=== PATIENT | male | born 1965 | race Caucasian/White ===

== ENCOUNTER 2016-10-03 17:00 | Inpatient (IN) | payer OTHER ==
--- NOTE | ~2016-10-03 | PN ---
Unit #: [id number] #: [id number] Patient: NAHOMY CORRAL [id number] [facility] [address] [place] [address] [id number] MR#: [id number] NAME: NAHOMY CORRAL ROOM: P254 Age: 51 Sex: M Admission Date: 10/03/2016 : 1965 Attending Physician: Danny Mullins M.D. Admitting Physician: Danny Mullins M.D. Primary Care Physician: Primary Care Physician Lizzette VELASCO PROGRESS NOTES DATE 10/05/2016 DISCUSSION The patient continues to complain of suicidal ideation during today's interview. He states that he had been compliant with the medications prior to coming to the hospital. He is a bit more active within the therapeutic milieu. We continue current treatment and further adjustments of the patient's psychotropic medication regimen mainly to be considered though the patient is already on an aggressive dose of olanzapine. Dictated by... Danny Mullins M.D. CB/alla TD: 10/05/2016 12:58 JOB #: [id number] ROD PROGRESS NOTES Page 1 of 1 X Danny Mullins MD PROGRESS NOTE
--- NOTE | ~2016-10-03 | PA ---
Unit #: [id number] #: [id number] Patient: NAHOMY CORRAL [id number] [place] [address] [id number] MR#: [id number] NAME: NAHOMY CORRAL ROOM: P254 Age: 51 Sex: M Admission Date: 10/03/2016 : 1965 Date of Assessment: 10/04/2016 Attending Physician: Danny Mullins M.D. Admitting Physician: Danny Mullins M.D. Primary Care Physician: Primary Care Physician No PSYCHIATRIC ASSESSMENT IDENTIFYING INFORMATION The patient is a 51-year-old male admitted with suicidal ideation. INFORMANT(S) Chart, patient could not aroused for interview. CHIEF COMPLAINT None given. HISTORY OF PRESENT ILLNESS The patient is a 51-year-old single white male who carries a diagnosis of chronic paranoid schizophrenia. He was last admitted to this facility in January of 2016. He returns reporting positive suicidal ideation and also reporting increased auditory and visual hallucinations. The patient has been noncompliant with prescribed medications per his report. The patient reports that the major stressors in his life right now is the presence of his brother in his home. The brother is refusing to leave. For more complete history of present illness please refer to previous dictated notes. PAST PSYCHIATRIC HISTORY Reviewed no changes. PAST MEDICAL HISTORY Reviewed no changes. MEDICATIONS Neurontin, Zyprexa. ALLERGIES None reported FAMILY HISTORY Reviewed no changes. SOCIAL HISTORY Reviewed no changes. MENTAL STATUS EXAMINATION At this time reveals the patient to be a thin disheveled white male who is soundly sleeping. Multiple attempts to arouse the patient are unsuccessful. The patient assets to be assessed. Liabilities lack of Unit #: [id number] #: [id number] Patient: NAHOMY CORRAL resources. DIAGNOSTIC IMPRESSION Chronic paranoid schizophrenia. TREATMENT PLAN The patient's medications will be reinitiated included gabapentin 600 mg four times daily and Zyprexa 15 mg twice daily. The patient will participate in appropriate martin and milieu activities with an estimate length of stay in the hospital of seven days. Suicide precautions are of course in place. Dictated by... Danny Mullins M.D. TIKA/kassie TD: 10/05/2016 01:37 JOB #: [id number] PSYCHIATRIC ASSESSMENT Page 1 of 1 X Danny Mullins MD PSYCHIATRIC ASSESSMENT
--- NOTE | ~2016-10-03 | DS ---
Unit #: [id number] #: [id number] Patient: NAHOMY CORRAL [id number] [facility] [address] [place] [address] [id number] MR#: [id number] NAME: NAHOMY CORRAL ROOM: 62 Age: 51 Sex: M Admission Date: 10/03/2016 : 1965 Discharge Date: 10/07/2016 Attending Physician: Danny Mullins M.D. Primary Care Physician: Primary Care Physician No DISCHARGE SUMMARY REASON FOR ADMISSION The patient is a 51-year-old white male, admitted with suicidal ideation. HOSPITAL COURSE The patient was admitted to the [facility] unit and placed on suicide precautions. He was restarted on previously prescribed gabapentin and Zyprexa, and tolerated reinitiation of the medications without complaint. He remained seclusive to room, but did report significant reduction in suicidal thinking and auditory hallucinations with reinitiation of medications. By 10/07/2016, the patient requested discharge and it was ordered. FINAL DIAGNOSES Chronic paranoid schizophrenia. DISPOSITION ON DISCHARGE The patient is discharged on the following medications: Neurontin 600 mg q.i.d. for anxiety and Zyprexa 15 mg b.i.d. for psychosis. DISCHARGE INSTRUCTIONS No dietary or physical restrictions were placed upon the patient at the time of discharge. FOLLOWUP Followup will take place through the auspices of community mental health resources. PROGNOSIS The patient's prognosis is considered fair. Dictated by... Danny Mullins M.D. CB/sharan TD: 10/07/2016 21:38 JOB #: [id number] Unit #: [id number] #: [id number] Patient: NAHOMY CORRAL DISCHARGE SUMMARY Page 1 of 1 X Danny Mullins MD X DISCHARGE SUMMARY
--- NOTE | ~2016-10-03 | PA ---
Unit #: [id number] #: [id number] Patient: JOVAN CORRAL [id number] [place] [address] [id number] MR#: [id number] NAME: JOVAN CORRAL ROOM: [facility] Age: 51 Sex: M Admission Date: 10/03/2016 : 1965 Date of Assessment: 10/04/2016 Attending Physician: Danny Mullins M.D. Admitting Physician: Danny Mullins M.D. Primary Care Physician: Primary Care Physician No PSYCHIATRIC ASSESSMENT ADDENDUM Dictating an addendum to the psychiatric evaluation on Jovan Corral, patient number [id number]. The addendum should read as follows: The patient's diagnostic impression should also include hepatitis C. Danny Mullins M.D. dictating an addendum to the previously dictated psychiatric evaluation on Jovan Corral. Dictated by... Danny Mullins M.D. CB/kassie TD: 10/05/2016 01:55 JOB #: [id number] PSYCHIATRIC ASSESSMENT Page 1 of 1 X Danny Mullins MD X PSYCHIATRIC ASSESSMENT
--- NOTE | ~2016-10-03 | HP ---
Unit #: [id number] #: [id number] Patient: JOVAN CORRAL [id number] [place] [address] [id number] MR#: [id number] NAME: JOVAN CORRAL ROOM: P254 Age: 51 Sex: M Admission Date: 10/03/2016 : 1965 Attending Physician: Danny Mullins M.D. Admitting Physician: Danny Mullins M.D. Primary Care Physician: Primary Care Physician No HISTORY AND PHYSICAL HISTORY OF PRESENT ILLNESS Jovan is a 51-year-old male admitted on 10/03/[address] [place] [address] for suicidal ideation and paranoid schizophrenia. PAST MEDICAL HISTORY Chronic pain in his ankle. PAST SURGICAL HISTORY Left ankle surgical repair with pin placement after a fracture. SOCIAL HISTORY He smokes one pack of cigarettes daily. Occasional beer and alcohol use and occasional marijuana use. He is currently single and living with his brother. FAMILY HISTORY Noncontributory. REVIEW OF SYSTEMS CONSTITUTIONAL: No fever or chills. HEENT: Denies any sore throat, ear pain or runny nose. CARDIOVASCULAR: Denies chest pain, irregular heart rhythm or palpitations. CHEST: Denies shortness of breath or cough. No hemoptysis. GASTROINTESTINAL: Denies nausea, vomiting, diarrhea or chronic constipation. ENDOCRINE: Denies history of increased thirst or urination. No recent significant weight loss or gain. GENITOURINARY: Denies dysuria, frequency, or hematuria. SKIN: Denies any rashes. HEMATOLOGIC: Denies history of increased bleeding or bruising. MUSCULOSKELETAL: Denies any hot, swollen joints. No generalized muscle pain. NEUROLOGIC: Denies problems with vision or speech. No frequent, severe headaches. No numbness, tingling or weakness in any extremities. Denies loss of bladder or bowel control. CURRENT MEDICATIONS Gabapentin and Zyprexa. Unit #: [id number] #: [id number] Patient: JOVAN CORRAL ALLERGIES Penicillin PHYSICAL EXAMINATION GENERAL: Alert, oriented, in no acute distress. VITAL SIGNS: Blood pressure 110/81, heart rate 67, respirations 17, temperature 98.8. HEIGHT: 5 foot 9 inches. WEIGHT: 194 pounds. SKIN: Warm and dry without rash or lesion. HEENT: Normocephalic. TMs not viewed. Oral and nasal passages clear. Conjunctivae clear. PERRLA. EOMs intact. NECK: Supple without lymphadenopathy or thyromegaly. HEART: Regular rate and rhythm without murmur. LUNGS: Clear. ABDOMEN: Soft, nontender, without masses or hepatosplenomegaly. : Not done. EXTREMITIES: No evidence of cyanosis, clubbing or edema. Moves all without focal deficit. NEUROLOGICAL: Grossly within normal limits. Cranial Nerves: II: Visual carey are intact. III, IV AND : Extraocular movements are intact. Pupils are equal, round and reactive to light. V: Facial sensation is grossly normal. VII: Facial movements and expression are normal. VIII: Auditory acuity grossly intact. IX, X: Uvula is midline. Phonation is normal. XI: Patient shrugs shoulders and turns head normally. XII: Tongue protrudes in the midline. Sensory and Motor Function: Sensory and motor sensation is grossly normal. Motor: moves all extremities well. Coordination: Gait is normal. Deep Tendon Reflexes: Intact. IMPRESSION Chronic pain. RECOMMENDATIONS Psychiatric, per psychiatrist. MEDICAL: I see no contraindications to participating in facility's activities. MEDICAL PROGNOSIS Good. MEDICAL CONDITION Stable. Dictated by... Bhupinder Looney/kassie TD: 10/05/2016 03:20 JOB #: [id number] Unit #: [id number] #: [id number] Patient: JOVAN CORRAL HISTORY AND PHYSICAL Page 1 of 1 X CESAR VASQUEZ APRN X HISTORY AND PHYSICAL
--- NOTE | ~2016-10-03 | PN ---
Unit #: [id number] #: [id number] Patient: NAHOMY CORRAL [id number] [facility] [address] [place] [address] [id number] MR#: [id number] NAME: NAHOMY CORRAL ROOM: 62 Age: 51 Sex: M Admission Date: 10/03/2016 : 1965 Attending Physician: Danny Mullins M.D. Admitting Physician: Danny Mullins M.D. Primary Care Physician: Primary Care Physician Lizzette VELASCO PROGRESS NOTES DATE 10/06/2016 DISCUSSION The patient is abed today seclusive to room but is reporting some improvement in mood and psychotic symptoms. He states that he may be ready for discharge "as soon as possible" and we will likely to possible a.m. discharge. Dictated by... Danny Mullins M.D. CB/jemima TD: 10/06/2016 15:35 JOB #: [id number] [facility] PROGRESS NOTES Page 1 of 1 X Danny Mullins MD PROGRESS NOTE
[~2016-10-03 17:00] MED LIST: ANTIBIOTIC PO; ASPIRIN81 M2 PO; BACITRACIN OINTMENT TOP; BACTRIM DS PO; BACTRIM DS TABL1 TA1 PO; CARAFATE1 G PO; CARVEDILOL3.125 MG PO; DARVOCET-N 1001 TAB PO; DEPAKOTE PO; DOXYCYCLINE HY100 M1 PO; EFFIENT10 MG PO; FAMOTIDINE PO; HYDROCODONE-APA1 T30 PO; IBUPROFEN800 MG PO; KEFLEX500 MG PO; LIPITOR40 MG PO; LISINOPRIL5 MG PO; LITHIUM PO; LORTAB 10-5001 EACH PO; LORTAB 101 TAB 10/5; LORTAB 7.51 TAB PO; METHADONE PO; NEURONTIN PO; NEURONTIN600 MG PO; NICOTINE1 EAC1 TD; NITROGLYCERIN0.4 MG SL; NORCO 5/325 TAB1 TAB PO; PAXIL PO; PHENERGAN PO; PRILOSEC PO; PRILOSEC20 M1 PO; SEROQUEL PO; SKELAXIN; SKELAXIN PO; TYLOX 5/500 CAP1 CAP PO; VICODIN PO; WESTCORT15 GM TOP; ZANTAC PO; ZOFRAN ODT PO; ZOFRAN ODT4 MG/UDTAB PO; ZYPREXA PO
== END 2016-10-07 14:45 | disposition home or self-care (01) | DRG 885 ==
LOC: P2L 19:27
DX: F20.0 Paranoid schizophrenia (principal); R45.851 Suicidal ideations; B19.20 Unspecified viral hepatitis C without hepatic coma; F17.210 Nicotine dependence, cigarettes, uncomplicated; F12.90 Cannabis use, unspecified, uncomplicated

== ENCOUNTER 2017-01-02 11:35 | Emergency (ER) | payer OTHER ==
--- NOTE | ~2017-01-02 | EKG ---
PATIENT: NAHOMY CORRAL UNIT #: [id number] Ventricular Rate: 94 BPM Atrial Rate: 94 BPM P-R Interval: 158 ms QRS Duration: 78 ms Q-T Interval: 340 ms QTC Calculation(Bezet): 425 ms P [place]: 55 degrees Calculated R [place]: -3 degrees Calculated T [place]: 38 degrees Diagnosis Line: Normal sinus rhythm Diagnosis Line: Normal ECG Diagnosis Line: Diagnosis Line: Confirmed by TONY BRAND MD ([id number]) on Diagnosis Line: 01/06/2017 8:22:00 AM INTERPRETING MD: SUNDAY FRAGA
[2017-01-02 12:05] LABS: URINE SOURCE CLEAN CATCH
[2017-01-02 12:08] LABS: URINE APPEARANCE CLEAR; URINE BILIRUBIN NEG (NEG); URINE BLOOD NEG (NEG); URINE COLOR YELLOW; URINE GLUCOSE NEG (NORM); URINE KETONE NEG (NEG); URINE LEUKOCYTE ESTERASE NEG (NEG); URINE NITRATE NEG (NEG); URINE PROTEIN NEG (NEG); URINE SPECIFIC GRAVITY 1.015 (1.003-1.035)
[2017-01-02 12:15] LABS: MICRO INDICATED? NO
[2017-01-02 12:18] LABS: AMPHETAMINE POS (NEG); BARBITURATES NEG (NEG); BENZODIAZEPINES POS (NEG); COCAINE NEG (NEG); MARIJUANA NEG (NEG); OPIATES NEG (NEG); TRICYCLIC ANTIDEPRESSANTS NEG (NEG); U METHADONE NEG (NEG)
[2017-01-02 12:33] LABS: POC - CKMB <1.0 ng/mL (0.0-7.9); POC - TROPONIN <0.05 ng/mL (<=0.05)
[2017-01-02 12:34] LABS: BASOPHIL# 0.1 X10e3 (0-0.3); BASOPHIL% 1.2 % (0-2.5); EOSINOPHIL# 0.3 X10e3 (0-0.7); EOSINOPHIL% 3.1 % (0.0-7.0); HEMATOCRIT 44.2 % (38.0-50.0); HEMOGLOBIN 14.5 gm/dL (13.0-16.0); LYMPHOCYTE# 2.6 X10e3 (1.0-3.5); LYMPHOCYTE% 26.8 % (17.0-45.0); MEAN CELL VOLUME 93.1 FL (83-96); MEAN CORPUSCULAR HEMOGLOBIN 30.6 PG (28-34); MEAN CORPUSCULAR HGB CONC 32.9 g/dL (30-36); MEAN PLATELET VOLUME 8.6 FL (6.5-11.5); MONOCYTE# 0.5 X10e3 (0-1.0); MONOCYTE% 4.8 % (3.0-12.0); NEUTROPHIL# 6.3 X10e3 (1.5-7.1); NEUTROPHIL% 64.1 % (40-75); PLATELET COUNT 348 X10e3 (140-420); RED BLOOD COUNT 4.75 X10e (3.90-5.60); RED CELL DISTRIBUTION WIDTH 15.3 % (11.0-15.5); WHITE BLOOD COUNT 9.8 X10e3 (4.0-10.5)
[2017-01-02 12:36] LABS: DIFF IND NO
[2017-01-02 12:43] LABS: ALBUMIN SERUM 3.7 g/dL (3.5-5.0); ALKALINE PHOSPHATASE 65 U/L (32-92); ALT (SGPT) 29 U/L (10-40); AMYLASE 27 U/L (0-46); AST (SGOT) 30 U/L (10-42); BILIRUBIN, DIRECT 0.1 mg/dL (0.0-0.2); BILIRUBIN,INDIRECT 0.2 mg/dL (0.0-0.9); BILIRUBIN,TOTAL 0.3 mg/dL (0.2-2.0); BLOOD UREA NITROGEN 11 mg/dL (9-23); CALCIUM SERUM 8.5 mg/dL (8.4-10.2); CARBON DIOXIDE 26 mmol/L (22-31); CHLORIDE 105 mmol/L (100-111); GLOM FILT RATE Estimated 85.6 mL/min (>60); GLUCOSE FASTING 155 mg/dL (70-110); LIPASE 34 U/L (22-51); POTASSIUM 3.1 mmol/L (3.5-5.1); PROTEIN TOTAL SERUM 6.9 g/dL (6.0-8.3); SODIUM 138 mmol/L (135-145)
[2017-01-02 12:57] LABS: ALCOHOL BLOOD <5 mg/dL ([, 0])
== END 2017-01-02 13:56 | disposition home or self-care (01) ==
LOC: SED 11:35
PROVIDERS: Emergency Medicine
DX: R10.13 Epigastric pain (principal); R51 Headache; R11.0 Nausea; K21.9 Gastro-esophageal reflux disease without esophagitis; F17.210 Nicotine dependence, cigarettes, uncomplicated; Z90.89 Acquired absence of other organs; Z79.899 Other long term (current) drug therapy; Z88.0 Allergy status to penicillin
CPT/HCPCS: 36415; 80048; 80076; 80307; 81003; 82150; 82553; 83690; 83874; 84484; 85025; 93005; 96361; 96374; 96375; 99284; C9113; G0480; J2270; J2405; J2550

== ENCOUNTER 2017-01-03 13:19 | Emergency (ER) | payer OTHER ==
[~2017-01-03] VITALS: Ht 175.3 cm; Wt 85.7 kg
--- NOTE | ~2017-01-03 | CT71 ---
[facility] A Service [facility] RADIOLOGY TEXT RESULTS PATIENT: NAHOMY CORRAL LOCATION: SED : 61 UNIT #: [id number] AGE: [address]: Alfonso Marino MD SEX: M ORDER DR: [id number] [address] [address] [id number] MR#: [id number] Acc #: [id number] NAME: NAHOMY CRORAL : 1965 SEX: M STUDY DATE/TIME: 01/03/2017 14:35 UNIT: SED ROOM: STUDY DESCRIPTION: CT Head Wo Contrast Attending Physician: Alfonso Marino M.D. Ordering Physician: Alfonso Marino M.D. Primary Care Physician: Primary Care Physician No MEDICAL IMAGING REPORT This report is preliminary unless electronic signature is present. EXAM CT scan of the brain without contrast INDICATION Headache since this morning COMPARISON 10/21/[address] exam was performed with one or more of the following radiation dose reduction techniques: automatic exposure control, adjustment of mA and/or kV according to patient size, and iterative reconstruction. FINDINGS Unenhanced images were obtained through the brain. There is some bifrontal inferior encephalomalacia which is stable. The ventricles and subarachnoid space are otherwise normal. There is no hemorrhage. IMPRESSION There is some encephalomalacia in the lower frontal lobes bilaterally suggesting perhaps previous trauma. It is unchanged from 2008. Otherwise the study is normal. Dictated by... Manolo Raphael M.D. THIS IS AN ELECTRONICALLY VERIFIED REPORT Manolo Raphael M.D. at 01/04/2017 7:06 AM BAILEY/greg TD: 01/03/2017 16:24 [facility] A Service [facility] RADIOLOGY TEXT RESULTS PATIENT: NAHOMY CORRAL LOCATION: SED : 61 UNIT #: [id number] AGE: [address]: Alfonso Marino MD SEX: M ORDER DR: TOM #: [id number] MEDICAL IMAGING REPORT Page 1 of 1
== END 2017-01-03 15:07 | disposition home or self-care (01) ==
LOC: SED 13:19
DX: R51 Headache (principal); G89.29 Other chronic pain; F15.10 Other stimulant abuse, uncomplicated; F20.9 Schizophrenia, unspecified; F17.200 Nicotine dependence, unspecified, uncomplicated; Z86.19 Personal history of other infectious and parasitic diseases; Z88.0 Allergy status to penicillin
CPT/HCPCS: 70450; 96372; 99284; J1885